=== PATIENT | male | born 1990 | race Caucasian/White ===

== ENCOUNTER 2017-08-18 20:35 | Emergency (ER) | payer OTHER ==
[~2017-08-18] VITALS: Ht 177.8 cm; Wt 68.2 kg
[2017-08-18 20:37] VITALS: BP 168/81; TEMP 99
[2017-08-18] MEDS ORDERED: FLEXERIL 1010 MG/TAB PO (22:50)
[2017-08-18 23:07] VITALS: PULSE 65
== END 2017-08-18 23:08 | disposition home or self-care (01) ==
LOC: COL.ER 20:35
DX: M62.830 Muscle spasm of back (principal); X50.0XXA Overexertion from strenuous movement or load, initial encounter